=== PATIENT | female | born 1980 | race Caucasian/White ===

== ENCOUNTER 2019-05-25 00:04 | Emergency (ER) | payer OTHER ==
[2019-05-25 00:23] VITALS: RESP 18
[2019-05-25 00:38] VITALS: TEMP 98.4
--- NOTE | 2019-05-25 00:54 | ED ---
URI HPI - General Chief Complaint: Upper Respiratory Infection Stated Complaint: SOB Time Seen by Provider: 05/25/19 00:27 Source: patient Mode of arrival: ambulatory Limitations: no limitations - History of Present Illness MD Complaint: fever, cough, sore throat Onset/Timin -: week(s) Severity: moderate Consistency: constant Improves With: nothing Worsens With: nothing Associated Symptoms: fever, sore throat, cough - Related Data Allergies Allergy/AdvReac Type Severity Reaction Status Date / Time No Known Allergies Allergy Verified 05/25/19 00:22 Review of Systems ROS Statement: Those systems with pertinent positive or pertinent negative responses have been documented in the HPI. ROS Other: All systems not noted in ROS Statement are negative. Constitutional: Reports: fever. Denies: chills ENT: Reports: throat pain, congestion Respiratory: Reports: cough. Denies: dyspnea Cardiovascular: Denies: chest pain, palpitations, edema Gastrointestinal: Denies: abdominal pain, vomiting, diarrhea Genitourinary: Denies: dysuria, hematuria Musculoskeletal: Denies: back pain Skin: Denies: rash Neurological: Denies: headache, weakness, numbness Past Medical History Past Medical History: No Reported History History of Any Multi-Drug Resistant Organisms: None Reported Past Surgical History: No Surgical Hx Reported Past Psychological History: No Psychological Hx Reported Smoking Status: Never smoker Past Alcohol Use History: None Reported Past Drug Use History: None Reported General Exam Limitations: no limitations General appearance: alert, in no apparent distress Head exam: Present: atraumatic, normocephalic Eye exam: Present: normal appearance. Absent: scleral icterus, conjunctival injection ENT exam: Present: mucous membranes moist, other (There is injection of the pharynx. Uvula is midline with no edema.) Neck exam: Present: normal inspection, full ROM, lymphadenopathy. Absent: meningismus Respiratory exam: Present: normal lung sounds bilaterally. Absent: respiratory distress, wheezes, rales, rhonchi, stridor, accessory muscle use, decreased breath sounds Cardiovascular Exam: Present: regular rate, normal rhythm, normal heart sounds. Absent: systolic murmur, diastolic murmur, rubs, gallop GI/Abdominal exam: Present: soft. Absent: distended, tenderness, guarding, rebound, rigid, organomegaly, mass Extremities exam: Present: normal inspection, normal capillary refill. Absent: pedal edema Back exam: Present: normal inspection. Absent: CVA tenderness (R), CVA tenderness (L) Neurological exam: Present: alert Skin exam: Present: warm, dry, intact, normal color. Absent: rash Course Vital Signs 05/25/19 05/25/19 00:17 00:34 Temperature 98.1 F 98.4 F Pulse Rate 112 H 93 Respiratory 18 18 Rate Blood Pressure 148/89 O2 Sat by Pulse 100 100 Oximetry Medical Decision Making - Lab Data Lab Results 05/25/19 Range/Units 00:49 Influenza Type A RNA Not Detected (Not Detectd) Influenza Type B (PCR) Not Detected (Not Detectd) Disposition Clinical Impression: Viral infection Disposition: HOME SELF-CARE Condition: Good Instructions (If sedation given, give patient instructions): Viral Syndrome (ED) Is patient prescribed a controlled substance at d/c from ED?: No Referrals: None,Stated [Primary Care Provider] - 1-2 days
--- NOTE | 2019-05-25 01:11 | XR ---
EXAMINATION TYPE: XR chest 2V DATE OF EXAM: 05/25/2019 COMPARISON: NONE HISTORY: Cough TECHNIQUE: FINDINGS: Heart and mediastinum are normal. Lungs are clear. Diaphragm is normal. Bony thorax appears normal. IMPRESSION: Normal chest
[2019-05-25 01:38] VITALS: BP 131/88; PULSE 86
== END 2019-05-25 01:38 | disposition home or self-care (01) ==
LOC: EC 00:04
DX: J06.9 Acute upper respiratory infection, unspecified (principal)
CPT/HCPCS: 71046; 87502; 99285

== ENCOUNTER 2021-02-11 20:45 | Emergency (ER) | payer BC, OTHER ==
[2021-02-11 20:54] VITALS: TEMP 98.9
[2021-02-11 21:05] VITALS: RESP 16
[2021-02-11] MEDS ORDERED: SODIUM CHLORIDE 0.9% 1,000 ML IV ONE (21:13)
[2021-02-11] MEDS ORDERED: KETOROLAC 15 MG/ML 1 ML VIAL IVP STA (21:13)
[2021-02-11] MEDS ORDERED: diphenhydrAMINE 50 MG/ML 1 ML VIAL IVP STA (21:14)
[2021-02-11] MEDS ORDERED: METOCLOPRAMIDE 5 MG/ML 2 ML VIAL IVP STA (21:14)
[2021-02-11 21:35] LABS: Basophils % (A) 0 %; Eosinophils % (A) 1 %; HCT 41.6 % (34.0-46.0); Lymphocytes # (A) 0.8 k/uL (1.0-4.8); Lymphocytes % (A) 24 %; MCH 30.3 pg (25.0-35.0); MCHC 33.8 g/dL (31.0-37.0); MCV 89.7 fL (80.0-100.0); Mean Platelet Volume 8.3; Monocytes # (A) 0.1 k/uL (0-1.0); Monocytes % (A) 4 %; Neutrophils # (A) 2.4 k/uL (1.3-7.7); Neutrophils % (A) 70 %; Platelet Count 140 k/uL (150-450); RBC 4.64 m/uL (3.80-5.40); RDW 11.6 % (11.5-15.5); WBC 3.5 k/uL (3.8-10.6)
[2021-02-11 21:44] LABS: ALT 28 U/L (4-34); AST 29 U/L (14-36); African American GFR (CKD) >90 (>60 ml/min/1.73 sqM); Alkaline Phosphatase 48 U/L (38-126); Anion Gap 12 mmol/L; Blood Urea Nitrogen 10 mg/dL (7-17); Calcium 8.5 mg/dL (8.4-10.2); Carbon Dioxide 25 mmol/L (22-30); Chloride 100 mmol/L (98-107); Glucose 90 mg/dL (74-99); Magnesium 2.1 mg/dL (1.6-2.3); Non-African American GFR(CKD) >90 (>60 ml/min/1.73 sqM); Potassium 3.9 mmol/L (3.5-5.1); Sodium 137 mmol/L (137-145); Total Bilirubin 0.3 mg/dL (0.2-1.3); Total Protein 7.2 g/dL (6.3-8.2)
--- NOTE | 2021-02-11 21:49 | XR ---
EXAMINATION TYPE: XR chest 1V portable DATE OF EXAM: 02/11/2021 COMPARISON: 05/25/2019 HISTORY: Cough and fever TECHNIQUE: Single frontal view of the chest is obtained. FINDINGS: There are mild to moderate right greater than left bibasilar hazy opacities. No pleural ef fusion, or pneumothorax seen. The cardiac silhouette size is within normal limits. The osseous str uctures are intact. IMPRESSION: Bibasilar atelectasis versus infiltrates.
--- NOTE | 2021-02-11 22:28 | ED ---
General Adult HPI - General Chief complaint: Upper Respiratory Infection Stated complaint: COVID + Source: patient Mode of arrival: ambulatory Limitations: no limitations - History of Present Illness Initial comments: 40-year-old previously healthy female presents emergency Department with her ported Covid symptoms. She states that she has been sick since last . She has symptoms of a fever, cough and shortness of breath. Has generalized body aches. Her is positive for Covid. She did have a test done yesterday and she was positive. Presents today requesting antibiotic infusion. She is not vaccinated. Denies concern for . Denies any chest pain. Admits to nausea without vomiting. No abdominal pain. No changes in her bowel or bladder habits. No other alleviating or modifying factors - Related Data Home Medications Medication Instructions Recorded Confirmed Ascorbic Acid [Vitamin C] 1,000 mg PO DAILY 02/11/21 02/11/21 Cholecalciferol [Vitamin D3 (25 50 mcg PO DAILY 02/11/21 02/11/21 Mcg = 1000 Iu)] Fluticasone Nasal [place] [Flonase 1 spray EA NOSTRIL DAILY PRN 02/11/21 02/11/21 Nasal [place]] Vitamin B Complex 1 cap PO DAILY 02/11/21 02/11/21 Allergies Allergy/AdvReac Type Severity Reaction Status Date / Time No Known Allergies Allergy Verified 02/11/21 21:51 Review of Systems ROS Statement: Those systems with pertinent positive or pertinent negative responses have been documented in the HPI. ROS Other: All systems not noted in ROS Statement are negative. Past Medical History Past Medical History: No Reported History History of Any Multi-Drug Resistant Organisms: None Reported Past Surgical History: No Surgical Hx Reported Past Psychological History: No Psychological Hx Reported Smoking Status: Never smoker Past Alcohol Use History: None Reported Past Drug Use History: None Reported General Exam Limitations: no limitations Course Vital Signs 02/11/21 02/11/21 20:52 21:03 Temperature 98.9 F Pulse Rate 100 Respiratory 20 16 Rate Blood Pressure 149/84 O2 Sat by Pulse 97 Oximetry Medical Decision Making - Medical Decision Making Upon arrival the patient is placed into room 31. A thorough history and phys ical exam is performed. Laboratory studies are conducted. Patient has a leukopenia of 3.5. Thrombocytopenia 140. Chest x-ray and a trace bibasilar atelectasis versus infiltrates. Patient's oxygen saturation is 97% and nonlabored. Patient is going to be given antibody infusion and discharged home. Instructed to follow-up with her primary care doctor. Instructed about pulse ox and return for any oxygenation less than 90%. Patient agreed to plan and is discharged home - Lab Data Result diagrams: 02/11/21 21:26 02/11/21 21:26 Lab Results 02/11/21 02/11/21 Range/Units 21:26 21:26 WBC 3.5 L (3.8-10.6) k/uL RBC 4.64 (3.80-5.40) m/uL Hgb 14.0 (11.4-16.0) gm/dL Hct 41.6 (34.0-46.0) % MCV 89.7 (80.0-100.0) fL MCH 30.3 (25.0-35.0) pg MCHC 33.8 (31.0-37.0) g/dL RDW 11.6 (11.5-15.5) % Plt Count 140 L (150-450) k/uL MPV 8.3 Neutrophils % 70 % Lymphocytes % 24 % Monocytes % 4 % Eosinophils % 1 % Basophils % 0 % Neutrophils # 2.4 (1.3-7.7) k/uL Lymphocytes # 0.8 L (1.0-4.8) k/uL Monocytes # 0.1 (0-1.0) k/uL Eosinophils # 0.0 (0-0.7) k/uL Basophils # 0.0 (0-0.2) k/uL Sodium 137 (137-145) mmol/L Potassium 3.9 (3.5-5.1) mmol/L Chloride 100 (98-107) mmol/L Carbon Dioxide 25 (22-30) mmol/L Anion Gap 12 mmol/L BUN 10 (7-17) mg/dL Creatinine 0.70 (0.52-1.04) mg/dL Est GFR (CKD-EPI)AfAm >90 (>60 ml/min/1.73 sqM) Est GFR (CKD-EPI)NonAf >90 (>60 ml/min/1.73 sqM) Glucose 90 (74-99) mg/dL Calcium 8.5 (8.4-10.2) mg/dL Magnesium 2.1 (1.6-2.3) mg/dL Total Bilirubin 0.3 (0.2-1.3) mg/dL AST 29 (14-36) U/L ALT 28 (4-34) U/L Alkaline Phosphatase 48 (38-126) U/L Total Protein 7.2 (6.3-8.2) g/dL Albumin 4.0 (3.5-5.0) g/dL Disposition Clinical Impression: COVID-19 Disposition: HOME SELF-CARE Condition: Stable Instructions (If sedation given, give patient instructions): Coronavirus Disease 2019 (COVID-19) Additional Instructions: You received antibody infusion today. Follow up with your doctor in 2-4 days. Check your pulse ox frequently - if your oxygen is less than 90%, return to the ED. Is patient prescribed a controlled substance at d/c from ED?: No Referrals: None,Stated [Primary Care Provider] - 1-2 days Time of Disposition: 22:26
[2021-02-11] MEDS ORDERED: BAMLANIVIMAB (EUA) 700 MG, ETESEVIMAB (EUA) 1,400 MG in SODIUM CHLORIDE 0.9% 50 ML IVPB ONE (22:30)
[2021-02-11] MEDS ORDERED: SODIUM CHLORIDE 0.9% 50 ML IVPB ONE (22:30)
[2021-02-11] MEDS ORDERED: ONDANSETRON 4 MG ODT STARTER PACK 2 TAB BTL PO STA (22:45)
[2021-02-11 23:21] VITALS: BP 110/74; PULSE 69
== END 2021-02-11 23:21 | disposition home or self-care (01) ==
LOC: EC 20:45
DX: U07.1 COVID-19 (principal)
CPT/HCPCS: 36415; 80053; 83735; 85025; 71045; 99285; 96374; 96375 ×2; J1200; J2765; J1885; S0119; J3490

== ENCOUNTER 2021-02-15 17:07 | Observation (INO) | payer BC ==
[2021-02-15] MEDS ORDERED: ACETAMINOPHEN TAB 500 MG TAB PO STA (18:55)
[2021-02-15] MEDS ORDERED: SODIUM CHLORIDE 0.9% 2,000 ML IV ONE (18:55)
[2021-02-15 19:20] LABS: Basophils % (A) 1 %; Eosinophils # (A) 0.1 k/uL (0-0.7); Eosinophils % (A) 1 %; HGB 14.1 gm/dL (11.4-16.0); Lymphocytes # (A) 0.9 k/uL (1.0-4.8); Lymphocytes % (A) 16 %; MCH 29.5 pg (25.0-35.0); MCHC 32.8 g/dL (31.0-37.0); Mean Platelet Volume 7.9; Monocytes # (A) 0.3 k/uL (0-1.0); Monocytes % (A) 6 %; Neutrophils # (A) 4.1 k/uL (1.3-7.7); Neutrophils % (A) 75 %; Platelet Count 252 k/uL (150-450); RBC 4.78 m/uL (3.80-5.40); RDW 11.7 % (11.5-15.5); WBC 5.5 k/uL (3.8-10.6)
--- NOTE | 2021-02-15 19:34 | XR ---
EXAMINATION TYPE: XR chest 1V portable DATE OF EXAM: 02/15/2021 COMPARISON: 02/11/2021 HISTORY: Weakness TECHNIQUE: Single view FINDINGS: There is some patchy infiltrate right lower lobe. Heart and mediastinum are normal. There a re no hilar masses. Left lung is fairly clear. Bony thorax is intact. IMPRESSION: There is right lower lobe pneumonia slightly worse than recent exam.
[2021-02-15 19:35] LABS: INR 0.9 (<1.2); Partial Thromboplastin Time 23.8 sec (22.0-30.0); Prothrombin Time 9.9 sec (9.0-12.0)
[2021-02-15 19:38] LABS: ALT 108 U/L (4-34); AST 97 U/L (14-36); African American GFR (CKD) >90 (>60 ml/min/1.73 sqM); Albumin 4.1 g/dL (3.5-5.0); Alkaline Phosphatase 61 U/L (38-126); Anion Gap 9 mmol/L; Blood Urea Nitrogen 11 mg/dL (7-17); Calcium 9.1 mg/dL (8.4-10.2); Carbon Dioxide 24 mmol/L (22-30); Chloride 106 mmol/L (98-107); Glucose 95 mg/dL (74-99); LDH 835 U/L (313-618); Magnesium 2.3 mg/dL (1.6-2.3); Non-African American GFR(CKD) >90 (>60 ml/min/1.73 sqM); Potassium 4.2 mmol/L (3.5-5.1); Sodium 139 mmol/L (137-145); Total Bilirubin 0.6 mg/dL (0.2-1.3); Total Protein 7.5 g/dL (6.3-8.2)
--- NOTE | 2021-02-15 19:49 | ED ---
General Adult HPI - General Chief complaint: Recheck/Abnormal Lab/Rx Stated complaint: COVID+ Time Seen by Provider: 02/15/21 17:35 Source: patient Mode of arrival: ambulatory Limitations: no limitations - History of Present Illness Initial comments: 40-year-old previously healthy female presents emergency Department with reported fatigue, nausea. She is known Covid positive. Symptoms started on the ninth. She had positive test on the 14 and on the 15 the patient received antibody infusion. States that since he infusion she did have one day where she felt better however began feeling sick again. She is weak with poor oral intake. States that she doesn't have an appetite. No vomiting. Denies concern for . No fevers or chest pain. Does admit to a cough. Patient is not vaccinated. No other alleviating, precipitating or modifying factors - Related Data Home Medications Medication Instructions Recorded Confirmed Ascorbic Acid [Vitamin C] 1,000 mg PO DAILY 02/11/21 02/15/21 Cholecalciferol [Vitamin D3 (25 50 mcg PO DAILY 02/11/21 02/15/21 Mcg = 1000 Iu)] Fluticasone Nasal [place] [Flonase 1 spray EA NOSTRIL DAILY PRN 02/11/21 02/15/21 Nasal [place]] Vitamin B Complex 1 cap PO DAILY 02/11/21 02/15/21 Previous Rx's Medication Instructions Recorded Dexamethasone [Decadron] 4 mg PO DAILY #7 tablet 02/16/21 Famotidine [Pepcid] 20 mg PO BID #30 tablet 02/16/21 Zinc Sulfate 220 mg PO DAILY #20 capsule 02/16/21 Allergies Allergy/AdvReac Type Severity Reaction Status Date / Time No Known Allergies Allergy Verified 02/15/21 18:41 Review of Systems ROS Statement: Those systems with pertinent positive or pertinent negative responses have been documented in the HPI. ROS Other: All systems not noted in ROS Statement are negative. Past Medical History Past Medical History: No Reported History Additional Past Medical History / Comment(s): covid History of Any Multi-Drug Resistant Organisms: None Reported Past Surgical History: No Surgical Hx Reported Past Psychological History: No Psychological Hx Reported Smoking Status: Never smoker Past Alcohol Use History: None Reported Past Drug Use History: None Reported General Exam Limitations: no limitations General appearance: alert, in no apparent distress, other (fatigued) Head exam: Present: atraumatic, normocephalic, normal inspection Eye exam: Present: normal appearance, PERRL, EOMI. Absent: scleral icterus, conjunctival injection, periorbital swelling ENT exam: Present: normal exam, mucous membranes moist Neck exam: Present: normal inspection. Absent: tenderness, meningismus, lymphadenopathy Respiratory exam: Present: normal lung sounds bilaterally. Absent: respiratory distress, wheezes, rales, rhonchi, stridor Cardiovascular Exam: Present: normal rhythm, tachycardia, normal heart sounds. Absent: systolic murmur, diastolic murmur, rubs, gallop, clicks GI/Abdominal exam: Present: soft, normal bowel sounds. Absent: distended, tenderness, guarding, rebound, rigid Extremities exam: Present: normal inspection, full ROM, normal capillary refill. Absent: tenderness, pedal edema, joint swelling, calf tenderness Back exam: Present: normal inspection Neurological exam: Present: alert, oriented X3, CN II-XII intact Psychiatric exam: Present: normal affect, normal mood Skin exam: Present: warm, dry, intact, normal color. Absent: rash Course Vital Signs 02/15/21 02/15/21 02/16/21 17:34 21:45 01:09 Temperature 98.6 F 98.6 F 98.8 F Pulse Rate 105 H 78 88 Pulse Rate [ Left] Respiratory 20 18 18 Rate Blood Pressure 161/89 130/79 143/89 Blood Pressure [Left Arm] O2 Sat by Pulse 100 98 98 Oximetry 02/16/21 02/16/21 02/16/21 02:07 03:04 04:33 Temperature Pulse Rate 94 Pulse Rate [ Left] Respiratory 18 18 18 Rate Blood Pressure Blood Pressure [Left Arm] O2 Sat by Pulse 99 98 Oximetry 02/16/21 02/16/21 07:00 08:00 Temperature 98.1 F 98.5 F Pulse Rate 87 Pulse Rate [ 96 Left] Respiratory 18 16 Rate Blood Pressure 133/82 Blood Pressure 137/84 [Left Arm] O2 Sat by Pulse 98 97 Oximetry EKG Findings - EKG Comments: EKG Findings:: EKG demonstrates a normal sinus rhythm with a ventricular rate of 79. NE interval 130. QRS 76. QTC 444. No acute ST segment or lesions depressions concerning for ischemic changes Medical Decision Making - Medical Decision Making On arrival patient was placed into room 11. A thorough history and physical exam is performed. IV is established and the patient was given 2 L bolus of normal saline. Laboratory studies are conducted which demonstrates an elevation in the patient's liver enzymes. LDH is 835. Chest x-ray is read by Dr. Fam is worsening right lower lobe pneumonia. Patient maintains a saturation of 100% without increased work of breathing. Patient is reevaluated and continues to feel weak. I did offer admission for fluid hydration for which the patient did agree to. Dexamethasone is ordered. Patient agreed to this. Spoke with [facility] who agreed to admit the patient - Lab Data Result diagrams: 02/16/21 04:44 02/16/21 04:44 Lab Results 02/15/21 02/15/21 02/15/21 Range/Units 19:10 19:10 19:10 WBC 5.5 (3.8-10.6) k/uL RBC 4.78 (3.80-5.40) m/uL Hgb 14.1 (11.4-16.0) gm/dL Hct 43.0 (34.0-46.0) % MCV 90.0 (80.0-100.0) fL MCH 29.5 (25.0-35.0) pg MCHC 32.8 (31.0-37.0) g/dL RDW 11.7 (11.5-15.5) % Plt Count 252 (150-450) k/uL MPV 7.9 Neutrophils % 75 % Lymphocytes % 16 % Monocytes % 6 % Eosinophils % 1 % Basophils % 1 % Neutrophils # 4.1 (1.3-7.7) k/uL Lymphocytes # 0.9 L (1.0-4.8) k/uL Monocytes # 0.3 (0-1.0) k/uL Eosinophils # 0.1 (0-0.7) k/uL Basophils # 0.0 (0-0.2) k/uL PT 9.9 (9.0-12.0) sec INR 0.9 (<1.2) APTT 23.8 (22.0-30.0) sec D-Dimer 0.31 (<0.60) mg/L FEU Sodium 139 (137-145) mmol/L Potassium 4.2 (3.5-5.1) mmol/L Chloride 106 (98-107) mmol/L Carbon Dioxide 24 (22-30) mmol/L Anion Gap 9 mmol/L BUN 11 (7-17) mg/dL Creatinine 0.61 (0.52-1.04) mg/dL Est GFR (CKD-EPI)AfAm >90 (>60 ml/min/1.73 sqM) Est GFR (CKD-EPI)NonAf >90 (>60 ml/min/1.73 sqM) Glucose 95 (74-99) mg/dL Plasma Lactic Acid [place] (0.7-2.0) mmol/L Calcium 9.1 (8.4-10.2) mg/dL Magnesium 2.3 (1.6-2.3) mg/dL Total Bilirubin 0.6 (0.2-1.3) mg/dL AST 97 H (14-36) U/L ALT 108 H (4-34) U/L Alkaline Phosphatase 61 (38-126) U/L Lactate Dehydrogenase 835 H (313-618) U/L Total Protein 7.5 (6.3-8.2) g/dL Albumin 4.1 (3.5-5.0) g/dL 02/15/21 Range/Units 19:10 WBC (3.8-10.6) k/uL RBC (3.80-5.40) m/uL Hgb (11.4-16.0) gm/dL Hct (34.0-46.0) % MCV (80.0-100.0) fL MCH (25.0-35.0) pg MCHC (31.0-37.0) g/dL RDW (11.5-15.5) % Plt Count (150-450) k/uL MPV Neutrophils % % Lymphocytes % % Monocytes % % Eosinophils % % Basophils % % Neutrophils # (1.3-7.7) k/uL Lymphocytes # (1.0-4.8) k/uL Monocytes # (0-1.0) k/uL Eosinophils # (0-0.7) k/uL Basophils # (0-0.2) k/uL PT (9.0-12.0) sec INR (<1.2) APTT (22.0-30.0) sec D-Dimer (<0.60) mg/L FEU Sodium (137-145) mmol/L Potassium (3.5-5.1) mmol/L Chloride (98-107) mmol/L Carbon Dioxide (22-30) mmol/L Anion Gap mmol/L BUN (7-17) mg/dL Creatinine (0.52-1.04) mg/dL Est GFR (CKD-EPI)AfAm (>60 ml/min/1.73 sqM) Est GFR (CKD-EPI)NonAf (>60 ml/min/1.73 sqM) Glucose (74-99) mg/dL Plasma Lactic Acid [place] 1.0 (0.7-2.0) mmol/L Calcium (8.4-10.2) mg/dL Magnesium (1.6-2.3) mg/dL Total Bilirubin (0.2-1.3) mg/dL AST (14-36) U/L ALT (4-34) U/L Alkaline Phosphatase (38-126) U/L Lactate Dehydrogenase (313-618) U/L Total Protein (6.3-8.2) g/dL Albumin (3.5-5.0) g/dL Disposition Clinical Impression: COVID-19, Dehydration, Tachycardia Disposition: ADMITTED IP TO THIS [facility] Condition: Stable Is patient prescribed a controlled substance at d/c from ED?: No Decision to Admit Reason: Admit from EC Decision Date: 02/15/21 Decision Time: 20:36
[2021-02-15] MEDS ORDERED: NALOXONE 0.4 MG/ML 1 ML VIAL IV PRN (20:36)
[2021-02-15] MEDS ORDERED: IBUPROFEN 400 MG TAB PO PRN (20:36)
[2021-02-15] MEDS ORDERED: ACETAMINOPHEN TAB 325 MG TAB PO PRN (20:36)
[2021-02-15] MEDS: DEXAMETHASONE SOD PHOSPHATE 10 MG/ML 1 ML VIAL IVP SCH (21:45)
[2021-02-15] MEDS ORDERED: FLUTICASONE 50MCG/SPRAY NASAL 16GM EA NOSTRIL PRN (22:12)
[2021-02-16] MEDS: SODIUM CHLORIDE 0.9% 1,000 ML IV SCH ×3 (02:11→10:53)
[2021-02-16 05:21] LABS: Basophils % (A) 0 %; Eosinophils % (A) 0 %; HCT 40.4 % (34.0-46.0); HGB 13.1 gm/dL (11.4-16.0); Lymphocytes # (A) 0.5 k/uL (1.0-4.8); Lymphocytes % (A) 15 %; MCH 29.5 pg (25.0-35.0); MCHC 32.4 g/dL (31.0-37.0); Mean Platelet Volume 7.8; Monocytes # (A) 0.1 k/uL (0-1.0); Monocytes % (A) 2 %; Neutrophils # (A) 2.6 k/uL (1.3-7.7); Neutrophils % (A) 81 %; Platelet Count 266 k/uL (150-450); RBC 4.43 m/uL (3.80-5.40); RDW 11.7 % (11.5-15.5); WBC 3.2 k/uL (3.8-10.6)
[2021-02-16] MEDS ORDERED: ASCORBIC ACID 500 MG TAB PO SCH (09:00)
[2021-02-16] MEDS ORDERED: CHOLECALCIFEROL 25 MCG (1000 IU) TABLET PO SCH (09:00)
[2021-02-16] MEDS ORDERED: NON FORMULARY DRUG (Vitamin B Complex [Vitamin B Complex] 1 EACH Capsule) PO SCH (09:00)
[2021-02-16 09:24] LABS: Albumin 3.8 g/dL (3.8-4.9); Albumin/Globulin Ratio 1.46 (1.60-3.17); Anion Gap 13.7 mmol/L (10.00-18.00); BUN/Creat Ratio 11.5 Ratio (12.00-20.00); Blood Urea Nitrogen 6.9 mg/dL (9.0-27.0); Calcium 8.5 mg/dL (8.7-10.3); Carbon Dioxide 21.3 mmol/L (20.0-27.5); Globulin 2.6 g/dL (1.6-3.3); Non-African American GFR(CKD) 115.6 (60.0-200.0); Potassium 4.4 mmol/L (3.5-5.5); Total Bilirubin 0.4 mg/dL (0.30-1.20); Total Protein 6.4 g/dL (6.2-8.2)
[2021-02-16 09:27] VITALS: BP 137/84; PULSE 96; RESP 16; TEMP 98.5
[2021-02-16] MEDS: DEXAMETHASONE SOD PHOSPHATE 10 MG/ML 1 ML VIAL IVP SCH (10:53)
--- NOTE | 2021-02-16 13:20 | P.HPIM ---
History of Present Illness Patient is a pleasant 82-year-old female came in some symptoms of for generalized fatigue and nausea. Patient the is positive for COVID-19 did receive a Monocryl antibody infusion on and . Patient was admitted because of severe fatigue patient has mildly elevated liver enzymes secondary to COVID-19 infection. Patient is present in not requiring any oxygen. Patient chest x-ray did show some infiltrate. Considering her continued symptoms and infiltrate on the chest x-ray patient will be discharged today on Decadron for 7 days along with vitamins for COVID-19. Patient had a normal d-dimer. Doesn't have any fever chills REVIEW OF SYSTEMS: CONSTITUTIONAL: No fever. HEENT: No recent visual problems or hearing problems. Denied any sore throat. CARDIOVASCULAR: No chest pain, orthopnea, PND, no palpitations, no syncope. PULMONARY: No shortness of breath, no cough, no hemoptysis. GASTROINTESTINAL: No diarrhea, no nausea, no vomiting, no abdominal pain. NEUROLOGICAL: No headaches, no weakness, no numbness. HEMATOLOGICAL: Denies any bleeding or petechiae. GENITOURINARY: Denies any burning micturition, frequency, or urgency. MUSCULOSKELETAL/RHEUMATOLOGICAL: Denies any joint pain, swelling, or any muscle pain. ENDOCRINE: Denies any polyuria or polydipsia. The rest of the 14-point review of systems is negative. PHYSICAL EXAMINATION: GENERAL: The patient is alert and oriented x3, not in any acute distress. Well developed, well nourished. HEENT: Pupils are round and equally reacting to light. EOMI. No scleral icterus. No conjunctival pallor. Normocephalic, atraumatic. No pharyngeal erythema. No thyromegaly. CARDIOVASCULAR: S1 and S2 present. No murmurs, rubs, or gallops. PULMONARY: Chest is clear to auscultation, no wheezing or crackles. ABDOMEN: Soft, nontender, nondistended, normoactive bowel sounds. No palpable organomegaly. MUSCULOSKELETAL: No joint swelling or deformity. EXTREMITIES: No cyanosis, clubbing, or pedal edema. NEUROLOGICAL: Gross neurological examination did not reveal any focal deficits. SKIN: No rashes. Assessment and plan -Generalized fatigue and weakness: Secondary to COVID-19 -Transaminitis: Secondary to systemic inflammatory response. Past Medical History Past Medical History: No Reported History Additional Past Medical History / Comment(s): covid History of Any Multi-Drug Resistant Organisms: None Reported Past Surgical History: No Surgical Hx Reported Past Anesthesia/Blood Transfusion Reactions: No Reported Reaction Past Psychological History: No Psychological Hx Reported Smoking Status: Never smoker Past Alcohol Use History: None Reported Past Drug Use History: None Reported Medications and Allergies Home Medications Medication Instructions Recorded Confirmed Type Ascorbic Acid [Vitamin C] 1,000 mg PO DAILY 02/11/21 02/15/21 History Cholecalciferol [Vitamin D3 (25 50 mcg PO DAILY 02/11/21 02/15/21 History Mcg = 1000 Iu)] Fluticasone Nasal [place] [Flonase 1 spray EA NOSTRIL DAILY PRN 02/11/21 02/15/21 History Nasal [place]] Vitamin B Complex 1 cap PO DAILY 02/11/21 02/15/21 History Dexamethasone [Decadron] 4 mg PO DAILY #7 tablet 02/16/21 Rx Famotidine [Pepcid] 20 mg PO BID #30 tablet 02/16/21 Rx Zinc Sulfate 220 mg PO DAILY #20 capsule 02/16/21 Rx Allergies Allergy/AdvReac Type Severity Reaction Status Date / Time No Known Allergies Allergy Verified 02/15/21 18:41 Physical Exam Vitals: Vital Signs Temp Pulse Pulse Resp BP BP Pulse Ox 02/16/21 08:00 98.5 F 96 16 137/84 97 02/16/21 07:00 98.1 F 87 18 133/82 98 02/16/21 04:33 18 02/16/21 03:04 18 98 02/16/21 02:07 94 18 99 02/16/21 01:09 98.8 F 88 18 143/89 98 02/15/21 21:45 98.6 F 78 18 130/79 98 02/15/21 17:34 98.6 F 105 H 20 161/89 100 Intake and Output 02/15/21 02/16/21 02/16/21 22:59 06:59 14:59 Other: Weight 72.575 kg 72.575 kg Results CBC & Chem 7: 02/16/21 04:44 02/16/21 04:44 Labs: Abnormal Lab Results - Last 24 Hours (Table) 02/15/21 02/15/21 02/16/21 Range/Units 19:10 19:10 04:44 WBC 3.2 L (3.8-10.6) k/uL Lymphocytes # 0.9 L 0.5 L (1.0-4.8) k/uL BUN (9.0-27.0) mg/dL BUN/Creatinine Ratio (12.00-20.00) Ratio Glucose (70-110) mg/dL Calcium (8.7-10.3) mg/dL AST 97 H (14-36) U/L ALT 108 H (4-34) U/L Lactate Dehydrogenase 835 H (313-618) U/L Albumin/Globulin Ratio (1.60-3.17) g/dL 02/16/21 Range/Units 04:44 WBC (3.8-10.6) k/uL Lymphocytes # (1.0-4.8) k/uL BUN 6.9 L (9.0-27.0) mg/dL BUN/Creatinine Ratio 11.50 L (12.00-20.00) Ratio Glucose 131 H (70-110) mg/dL Calcium 8.5 L (8.7-10.3) mg/dL AST 50 H (14-36) U/L ALT 94 H (4-34) U/L Lactate Dehydrogenase (313-618) U/L Albumin/Globulin Ratio 1.46 L (1.60-3.17) g/dL Thrombosis Risk Factor Assmnt - Choose All That Apply Other Risk Factors: No Other congenital or acquired thrombophilia - If yes, enter type in comment: No
--- NOTE | 2021-02-16 13:21 | P.DS ---
Providers Date of admission: 02/15/21 20:36 Attending physician: Jessie Sequeira Primary care physician: Stated None Hospital Course: Patient is admitted for COVID-19 infection patient is not according and oxygen saturation 97% on room air, patient will be discharged today and was advised to frequently monitor her pulse oximeter and if it's less than 91% patient was asked to come back. Patient will be discharged today. Patient Condition at Discharge: Stable Plan - Discharge Summary Discharge Rx Participant: No New Discharge Prescriptions: New Dexamethasone [Decadron] 4 mg PO DAILY #7 tablet Famotidine [Pepcid] 20 mg PO BID #30 tablet Zinc Sulfate 220 mg PO DAILY #20 capsule Continue Cholecalciferol [Vitamin D3 (25 Mcg = 1000 Iu)] 50 mcg PO DAILY Fluticasone Nasal [place] [Flonase Nasal [place]] 1 spray EA NOSTRIL DAILY PRN PRN Reason: Allergy Symptoms Vitamin B Complex 1 cap PO DAILY Ascorbic Acid [Vitamin C] 1,000 mg PO DAILY Discharge Medication List Ascorbic Acid [Vitamin C] 1,000 mg PO DAILY 02/11/21 [History] Cholecalciferol [Vitamin D3 (25 Mcg = 1000 Iu)] 50 mcg PO DAILY 02/11/21 [History] Fluticasone Nasal [place] [Flonase Nasal [place]] 1 spray EA NOSTRIL DAILY PRN 02/11/21 [History] Vitamin B Complex 1 cap PO DAILY 02/11/21 [History] Dexamethasone [Decadron] 4 mg PO DAILY #7 tablet 02/16/21 [Rx] Famotidine [Pepcid] 20 mg PO BID #30 tablet 02/16/21 [Rx] Zinc Sulfate 220 mg PO DAILY #20 capsule 02/16/21 [Rx] Follow up Appointment(s)/Referral(s): Laverne Tang MD [STAFF PHYSICIAN] - 1 Week
== END 2021-02-16 13:54 | disposition home or self-care (01) ==
LOC: EC 17:07 → 6NMEDSUR 20:36
PROVIDERS: ADMIT Hospitalist; ATTEND Hospitalist
DX: U07.1 COVID-19 (principal); J12.82 Pneumonia due to coronavirus disease 2019; E86.0 Dehydration; R11.0 Nausea; R74.01 Elevation of levels of liver transaminase levels; Z79.899 Other long term (current) drug therapy; Z71.9 Counseling, unspecified
CPT/HCPCS: 96376; 96361; 96374; 99284; 36415; 93005; 85379; 80053 ×2; 83605; 83615; 83735; 85025 ×2; 85610; 85730; 71045; G0378 ×3; J1100 ×2